=== PATIENT | male | born 1960 | race African-American/Black ===

== ENCOUNTER 2019-11-03 01:42 | Emergency (ER) | payer SELFPAY ==
[~2019-11-03] VITALS: Ht 190.5 cm; Wt 79.5 kg
[2019-11-03 01:58] VITALS: BP 218/105
[2019-11-03] MEDS ORDERED: AMLO10TA8 PO (02:10)
[2019-11-03] MEDS ORDERED: CLIN150C14 PO (02:10)
--- NOTE | 2019-11-03 02:12 | PHYS DOC ---
Adult General Chief Complaint Chief Complaint: HEADACHE HPI HPI 59-year-old male with known dental caries and dental abscess is currently on clindamycin, Tylenol Motrin for pain presents today with increasing pain. He denies any fever however states continued pain to side of face. He denies any chest pain, shortness breath, nausea, vomiting, abdominal pain. There is no evidence of sore throat, edema appreciated on exam. Patient states pain is unbearable on exam. All other ROS negative unless documented in HPI Review of Systems Review of Systems See Above Physical Exam Physical Exam See Above Constitutional: Well developed, well nourished, distress 2/2 pain, non-toxic appearance. [] HENT: Normocephalic, atraumatic, bilateral external ears normal, oropharynx moist, no oral exudates, obvious swelling appreciated to right face, no erythema appreciated, nose normal. [] Eyes: PERRLA, EOMI, conjunctiva normal, no discharge. [] Neck: Normal range of motion, no tenderness, supple, no stridor. [] Cardiovascular:Heart rate regular rhythm, no murmur [] Lungs & Thorax: Bilateral breath sounds clear to auscultation [] Skin: Warm, dry, no erythema, no rash. [] Neurologic: Alert and oriented X 3, no focal deficits noted. [] Psychologic: Affect normal, judgement normal, mood normal. [] EKG EKG [] Radiology/Procedures Radiology/Procedures [] Course & Med Decision Making Course & Med Decision Making Pertinent Labs and Imaging studies reviewed. (See chart for details) []59-year-old male with known dental caries and dental abscess is currently on clindamycin, Tylenol Motrin for pain presents today with increasing pain. He denies any fever however states continued pain to side of face. He denies any chest pain, shortness breath, nausea, vomiting, abdominal pain. There is no evidence of sore throat, edema appreciated on exam. Patient states pain is unbearable on exam. Dental block with 1ml of lidocaine, 1ml of 0.5% bupivicaine Patient with relief of pain Recommend continuing antibiotic therapy, prescription for 2 days of pain medications provided upon discharge Return precautions provided Dragon Disclaimer Dragon Disclaimer This electronic medical record was generated, in whole or in part, using a voice recognition dictation system. Departure Departure Impression: Primary Impression: Dental abscess Additional Impression: Dental caries Disposition: HOME, SELF-CARE Condition: STABLE Referrals: NO PCP (PCP) Patient Instructions: Dental Abscess, Dental Caries Additional Instructions: Recommend follow up with PCP 3 - 5 days Return to the ER with worsening symptoms, intractable pain, fever, altered mental status Tylenol/Motrin as needed for pain Take antibiotics as prescribed Rx for pain medication provided Return to the ER with difficulty swallowing, movement of swelling to the neck Scripts Hydrocodone/Apap 5-325 (NORCO 5-325 TABLET) 1 Each Tablet 1 TAB PO PRN Q6HRS PRN for PAIN, #10 TAB 0 Refills Prov: IRINA GEORGE MD 11/03/19 Problem Qualifiers IRINA GEORGE MD Nov 03, 2019 02:12
[2019-11-03] MEDS ORDERED: HYDR-3164 PO (02:24)
== END 2019-11-03 02:30 | disposition home or self-care (01) ==
LOC: ER 01:42
DX: K04.7 Periapical abscess without sinus (principal); K02.9 Dental caries, unspecified
CPT/HCPCS: 64400; 99283; 99284